=== PATIENT | male | born 1980 | race African-American/Black ===

== ENCOUNTER 2017-07-06 14:41 | Emergency (ER) | payer SELFPAY ==
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
[2017-07-06 18:35] VITALS: BP 136/90
== END 2017-07-06 17:48 | disposition home or self-care (01) ==
LOC: ED 14:41
DX: M54.2 Cervicalgia (principal); M25.512 Pain in left shoulder; M25.562 Pain in left knee; V43.62XA Car passenger injured in collision with other type car in traffic accident, initial encounter; Y92.9 Unspecified place or not applicable; F17.210 Nicotine dependence, cigarettes, uncomplicated
CPT/HCPCS: 72050; 99282

== ENCOUNTER 2018-04-30 17:17 | Emergency (ER) | payer OTHER ==
[2018-04-30] MEDS ORDERED: Ketorolac TAB * 10 MG TAB PO ONE (17:43)
[2018-04-30] MEDS ORDERED: Diazepam TAB(*) 5 MG PO ONE (17:43)
--- NOTE | 2018-04-30 17:47 | ED ---
Upper Extremity Pain - HPI Summary HPI Summary: Patient complains of waking up 2 days ago with left shoulder blade pain that has progressed to left shoulder and arm. Patient states pain is progressive, worse with movement of arm and palpation. States he helped someone move the day before. Denies any loss of function in left arm, any other symptoms, pain or injury. Med history is HIV. Followed by Dr. Noriega, last checkup one month ago, disease undetectable. - History of Current Complaint Chief Complaint: EDShoulderClavicleInj Stated Complaint: LEFT SHOULDER/ARM PAIN Time Seen by Provider: 04/30/18 17:37 Hx Obtained From: Patient Mechanism Of Injury: Unknown Onset/Duration: Started Days Ago Timing: Constant Severity Initially: Moderate Severity Currently: Severe Pain Location: Shoulder, Arm Character: Aching, Throbbing Aggravating Factor(s): Movement Alleviating Factor(s): Nothing Associated Signs & Symptoms: Positive: Negative - Allergies/Home Medications Allergies/Adverse Reactions: Allergies Allergy/AdvReac Type Severity Reaction Status Date / Time shellfish derived Allergy Anaphylatic Verified 07/06/17 15:07 Shock PMH/Surg Hx/FS Hx/Imm Hx Endocrine/Hematology History: Denies: Hx Anticoagulant Therapy Cardiovascular History: Denies: Hx Myocardial Infarction History: Denies: Hx Dialysis Musculoskeletal History: Denies: Hx Gout Sensory History: Denies: Hx Eye Prosthesis Opthamlomology History: Denies: Hx Legally Blind EENT History: Denies: Hx Deafness Neurological History: Denies: Hx Dementia Psychiatric History: Denies: Hx Autism Infectious Disease History: No Infectious Disease History: Denies: Traveled Outside the [place] in Last 30 Days - Family History Known Family History: Positive: Diabetes - Social History Alcohol Use: Weekly Hx Substance Use: Yes Substance Use Type: Reports: Marijuana Substance Use Comment - Amount & Last Used: daily Hx Tobacco Use: Yes Smoking Status (MU): Light Every Day Tobacco Smoker - 2 cig per day Type: Cigarettes Review of Systems Constitutional: Negative Eyes: Negative ENT: Negative Cardiovascular: Negative Respiratory: Negative Gastrointestinal: Negative Genitourinary: Negative Positive: Arthralgia, Myalgia Skin: Negative Neurological: Negative Psychological: Normal All Other Systems Reviewed And Are Negative: Yes Physical Exam - Summary Physical Exam Summary: No ecchymosis, erythema, swelling, deformity, extra warmth noted to left shoulder blade, left shoulder or left arm. PMS intact distally. Patient has full range of motion of all joints of left arm. No indication of IV drug use. 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 Triage Information Reviewed: Yes Vital Signs On Initial Exam: Initial Vitals Temp Pulse Resp BP Pulse Ox 98.2 F 64 16 133/83 98 04/30/18 17:19 04/30/18 17:19 04/30/18 17:19 04/30/18 17:19 04/30/18 17:19 Vital Signs Reviewed: Yes Appearance: Positive: Well-Appearing Skin: Positive: Warm Head/Face: Positive: Normal Head/Face Inspection Eyes: Positive: Normal Neck: Positive: Supple Respiratory/Lung Sounds: Positive: Clear to Auscultation Cardiovascular: Positive: Normal Abdomen Description: Positive: Nontender Musculoskeletal: Positive: Normal Neurological: Positive: Normal Psychiatric: Positive: Normal AVPU Assessment: Alert - [place] Coma Scale Best Eye Response: 4 - Spontaneous Best Motor Response: 6 - Obeys Commands Best Verbal Response: 5 - Oriented Coma Scale Total: 15 Diagnostics - Vital Signs Vital Signs Temp Pulse Resp BP Pulse Ox 04/30/18 17:19 98.2 F 64 16 133/83 98 - Laboratory Lab Statement: Any lab studies that have been ordered have been reviewed, and results considered in the medical decision making process. Course/Dx - Course Course Of Treatment: Patient complains of waking up 2 days ago with left shoulder blade pain that has progressed to left shoulder and arm. Patient states pain is progressive, worse with movement of arm and palpation. States he helped someone move the day before. Denies any loss of function in left arm , any other symptoms, pain or injury. Med history is HIV. Followed by Dr. Noriega, last checkup one month ago, disease undetectable. Physical exam:No ecchymosis, erythema, swelling, deformity, extra warmth noted to left shoulder blade, left shoulder or left arm. PMS intact distally. Patient has full range of motion of all joints of left arm. No indication of IV drug use. 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 Vital signs within normal limits. Diagnosis muscle spasm. Rx for Flexeril. Advised patient also take ibuprofen. - Diagnoses Provider Diagnoses: Muscle spasm Discharge - Sign-Out/Discharge Documenting (check all that apply): Patient Departure Patient Received Moderate/Deep Sedation with Procedure: No - Discharge Plan Condition: Stable Disposition: HOME Prescriptions: Cyclobenzaprine TAB* [Flexeril 10 MG TAB*] 10 mg PO TID PRN 5 Days #15 tab PRN Reason: Pain Patient Education Materials: Muscle Spasm (ED) Referrals: Sarita PERRY,Marshal Trujillo [Primary Care Provider] - Additional Instructions: Take Flexeril as directed. Take ibuprofen 800 mg 3 times a day for the next 3 days. Return to the ED for any new or worsening symptoms. - Billing Disposition and Condition Condition: STABLE Disposition: Home
[2018-04-30 19:11] VITALS: BP 142/83
== END 2018-04-30 19:09 | disposition home or self-care (01) ==
LOC: ED 17:17
DX: M62.838 Other muscle spasm (principal); M25.512 Pain in left shoulder; F17.210 Nicotine dependence, cigarettes, uncomplicated
CPT/HCPCS: 99282; A9270-GY

== ENCOUNTER → 2018-07-12 16:55 | Emergency (ER) | payer OTHER ==
[~2018-07-12 16:55] MED LIST: Tetan/Diph/Pertus SYR(Tdap)* 0.5 ML SYR(BOOSTRIX) use SYR IM ONE
--- NOTE | 2018-07-12 17:21 | ED ---
Laceration/Wound HPI - HPI Summary HPI Summary: 38-year-old male presents with right thumb laceration today. He state cut it on a glass doing dishes. Area is not actively bleeding. No numbness or tingling.. He is right-handed. Has history of HIV. Denies a foreign body in the wound. - History of Current Complaint Stated Complaint: RIGHT THUMB LAC PER EMS Time Seen by Provider: 07/12/18 17:10 Pain Intensity: 3 - Allergy/Home Medications Allergies/Adverse Reactions: Allergies Allergy/AdvReac Type Severity Reaction Status Date / Time shellfish derived Allergy Anaphylatic Verified 07/06/17 15:07 Shock PMH/Surg Hx/FS Hx/Imm Hx Endocrine/Hematology History: Denies: Hx Anticoagulant Therapy Cardiovascular History: Denies: Hx Myocardial Infarction History: Denies: Hx Dialysis Musculoskeletal History: Denies: Hx Gout Sensory History: Denies: Hx Eye Prosthesis, Hx Legally Blind, Hx Deafness Opthamlomology History: Denies: Hx Eye Prosthesis, Hx Legally Blind Neurological History: Denies: Hx Dementia Psychiatric History: Denies: Hx Autism Infectious Disease History: No Infectious Disease History: Denies: Traveled Outside the [place] in Last 30 Days - Family History Known Family History: Positive: Diabetes - Social History Alcohol Use: Weekly Hx Substance Use: Yes Substance Use Type: Reports: Marijuana Substance Use Comment - Amount & Last Used: daily Hx Tobacco Use: Yes Smoking Status (MU): Light Every Day Tobacco Smoker Type: Cigarettes Review of Systems Negative: Fever Negative: Chest Pain Negative: Shortness Of Breath Positive: Other - right thumb laceration All Other Systems Reviewed And Are Negative: Yes Physical Exam Triage Information Reviewed: Yes Vital Signs On Initial Exam: Initial Vitals Temp Pulse Resp BP Pulse Ox 97.7 F 67 18 108/71 99 07/12/18 17:10 07/12/18 17:10 07/12/18 17:10 07/12/18 17:10 07/12/18 17:10 Vital Signs Reviewed: Yes Appearance: Positive: Well-Appearing Skin: Positive: Warm, Dry, Other - flap like laceration on right thumb 4cm by 1/ 2cm, abrasions to knuckle on right index finger 1cm superficial Head/Face: Positive: Normal Head/Face Inspection Eyes: Positive: Normal, Conjunctiva Clear ENT: Positive: Pharynx normal Respiratory/Lung Sounds: Positive: Clear to Auscultation, Breath Sounds Present Cardiovascular: Positive: Normal, RRR Musculoskeletal: Positive: Strength/ROM Intact - right thumb, Other - capillary refill<2secs Neurological: Positive: Normal Psychiatric: Positive: Normal Procedures - Laceration/Wound Repair 1 Location: Other - right thumb Description: Irregular Anesthesia: Local, 1.0% Length, Depth and Shape: 4cm by 1/2cm Irrigated w/ Saline (ccs): 300 Suture Type: Prolene Number of Sutures: 5 Sterile Dressing Applied?: No 2 Location: Other - right index finger Description: Irregular Length, Depth and Shape: 1cm superficial flap Irrigated w/ Saline (ccs): 50 Closure: Skin Adhesive Diagnostics - Vital Signs Vital Signs Temp Pulse Resp BP Pulse Ox 07/12/18 17:10 97.7 F 67 18 108/71 99 - Laboratory Lab Statement: Any lab studies that have been ordered have been reviewed, and results considered in the medical decision making process. Laceration Repair Course/Dx - Course Course Of Treatment: 38-year-old male presents with right thumb laceration today. He state cut it on a glass doing dishes. Area is not actively bleeding. No numbness or tingling.. He is right-handed. Has history of HIV. Denies a foreign body in the wound. On exam has 4cm centimeters by half a flap- like laceration of the right thumb over the IP joint. neurovascular intact. Cleaned area and placed 5 sutures. placed glue on superficial right index finger laceration. told keep clean and dry. gave tetanus. patient understand and agrees with plan. - Differential Dx Differental Diagnoses: Abrasion, Avulsion, Laceration - Clinical Impression Provider Diagnoses: Laceration of right thumb Discharge - Sign-Out/Discharge Documenting (check all that apply): Patient Departure Patient Received Moderate/Deep Sedation with Procedure: No - Discharge Plan Condition: Good Disposition: HOME Patient Education Materials: Care For Your Stitches (ED) Referrals: Sarita PERRY,Marshal Trujillo [Primary Care Provider] - Additional Instructions: Take Tylenol or ibuprofen for pain every 6 hours as needed Keep area clean and dry for 24 hours Return to ED or primary in 8-10 days to have sutures removed Return to ED if develop signs of infection such as fever, spreading redness, or pus. - Billing Disposition and Condition Condition: GOOD Disposition: Home
[2018-07-12 18:55] VITALS: BP 114/80
== END | disposition home or self-care (01) ==
LOC: ED 16:55
DX: S61.011A Laceration without foreign body of right thumb without damage to nail, initial encounter (principal); W25.XXXA Contact with sharp glass, initial encounter; Y93.G1 Activity, food preparation and clean up; Y92.010 Kitchen of single-family (private) house as the place of occurrence of the external cause; Y99.8 Other external cause status; F17.210 Nicotine dependence, cigarettes, uncomplicated; Z21 Asymptomatic human immunodeficiency virus [HIV] infection status
CPT/HCPCS: 12002; 90715; 96368; 99281

== ENCOUNTER 2018-08-12 14:06 | Emergency (ER) | payer OTHER ==
[2018-08-12] MEDS ORDERED: Ibuprofen TAB* 600 MG PO ONE (14:36)
[2018-08-12 16:07] VITALS: BP 129/85
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
== END 2018-08-12 16:04 | disposition home or self-care (01) ==
LOC: ED 14:06
DX: S16.1XXA Strain of muscle, fascia and tendon at neck level, initial encounter (principal); V44.5XXA Car driver injured in collision with heavy transport vehicle or bus in traffic accident, initial encounter; Y92.9 Unspecified place or not applicable; F17.210 Nicotine dependence, cigarettes, uncomplicated
CPT/HCPCS: 99282; A9270-GY